=== PATIENT | female | born 1945 | race Caucasian/White ===

== ENCOUNTER 2016-04-21 10:04 | Emergency (ER) | payer MEDICARE, MEDICAID ==
[~2016-04-21] VITALS: Wt 84.0 kg
[~2016-04-21 10:04] MED LIST: AMLO5TAB4 PO; ESCI10TA48 PO; ESOM40CA PO; INSU100V19 SC; KETO15CR TOP; LORA0.5T PO; MECL25TA2 PO; PIOG15TA21 PO; SITA1TAB7 PO; SITA50TA2 PO; TERB250T46 PO; TYL500 PO
[2016-04-21] MEDS ORDERED: morphine 4 MG/ML VIAL IV STA (10:49)
[2016-04-21] MEDS ORDERED: SOD CHLORIDE 0.9% 1,000 ML IV STA (10:49)
[2016-04-21] MEDS ORDERED: ONDANSETRON 4 MG INJ IV STA (10:49)
[2016-04-21 11:22] LABS: BASOPHILS % 0.4 % (0.0-2.0); EOSINOPHILS # 0.1 10^3/ul (0.0-0.5); EOSINOPHILS % 0.8 % (0.0-7.0); HEMATOCRIT 37.9 % (37.0-47.0); HEMOGLOBIN 12.5 g/dl (12.0-16.0); LYMPHOCYTES % 14.6 % (15.0-51.0); MEAN CORPUSCULAR HEMOGLOBIN 27.5 pg (29.0-33.0); MEAN CORPUSCULAR VOLUME 83.3 fl (82.0-101.0); MEAN PLATELET VOLUME 10.1 fl (7.4-10.4); MONOCYTE # 0.3 10^3/ul (0.3-0.9); NEUTROPHIL # 5.7 10^3/ul (1.6-7.5); NEUTROPHILS % 80.2 % (39.0-77.0); PLATELET COUNT 96 10^3/UL (140-440); RED BLOOD COUNT 4.55 10^6/ul (4.20-5.40); RED CELL DISTRIBUTION WIDTH 14.6 % (11.5-14.5); UNCORRECTED WBC 7.1 10^3/ul (4.8-10.8); WHITE BLOOD COUNT 7.1 10^3/ul (4.8-10.8)
[2016-04-21 11:24] LABS: ADD UMIC YES; CONDITION 1; LH ANALYZER COMMENTS 1; URINE BILIRUBIN (Dip) NEGATIVE (NEGATIVE); URINE BLOOD (Dip) NEGATIVE (NEGATIVE); URINE COLOR YELLOW (YELLOW); URINE GLUCOSE (Dip) NEGATIVE (NEGATIVE); URINE KETONES (Dip) NEGATIVE (NEGATIVE); URINE LEUKOCYTE ESTERASE (Dip) TRACE (NEGATIVE); URINE NITRITE (Dip) NEGATIVE (NEGATIVE); URINE TOTAL PROTEIN (Dip) NEGATIVE (NEGATIVE); URINE UROBILINOGEN (Dip) 4.0 E.U./dL (0.1-1.0)
[2016-04-21 11:27] LABS: ALBUMIN 3.6 g/dl (3.3-4.9)
[2016-04-21 11:28] LABS: POTASSIUM 3.8 mmol/L (3.5-5.1)
[2016-04-21 11:30] LABS: ALBUMIN/GLOBULIN RATIO 1.12; BILIRUBIN,INDIRECT 0.8 mg/dl (0-1.1); BILIRUBIN,TOTAL 0.8 mg/dl (0.2-1.3); CREATININE 0.66 mg/dl (0.44-1.00); TOTAL PROTEIN 6.8 g/dl (6.1-8.1)
[2016-04-21 11:31] LABS: CALCIUM 9.4 mg/dl (8.4-10.2)
[2016-04-21 11:33] LABS: SQUAMOUS EPITHELIAL CELL,UR OCCASIONAL; URINE RBCS NONE SEEN /HPF (0)
[2016-04-21] MEDS ORDERED: LANT3I SC (12:12)
[2016-04-21] MEDS ORDERED: OMEP40CA6 PO (12:14)
[2016-04-21] MEDS ORDERED: RANI150T5 PO (12:14)
[2016-04-21] MEDS ORDERED: LOSA100T7 PO (12:16)
--- NOTE | 2016-04-21 13:10 | RADRPT ---
PROCEDURE: CT abdomen and pelvis without IV contrast CLINICAL INDICATION: Abdominal pain TECHNIQUE: Axial images were obtained through the abdomen and pelvis without IV contrast. Coronal and sagittal reconstructions were obtained. Automated exposure control was utilized. DLP = 1291.3 mGy-cm. CTDiol= 22.2 mGy. One or more of the following post reduction techniques were used: - Automated exposure control. - Adjustment of the mA and/or Kv according to patient's size. - Use of iterative reconstruction technique COMPARISON: December 01, 2011 FINDINGS: Dependent, subsegmental atelectasis is identified in both lungs. Heart size is within normal limits . Diffusely nodular contour of the liver is identified. Punctate calcified granuloma is identified in the right liver. Cholecystectomy clips are noted in the gallbladder fossa. The pancreas and adren als are unremarkable. The spleen measures at the upper limit of normal at 12.7 cm in length. 1.9 cm mildly high attenuation nodule projects from the superior pole of the left kidney. 2.[address] is noted in the inferior pole of the right kidney. No obstructive uropathy is identified. The bl adder is filled with a small to moderate amount of urine. The uterus has been removed. Air and stool are seen scattered within the colon. Multiple left colon and sigmoid colon diverticul a are observed. Additional diverticula are seen scattered throughout the right colon. The appendix is not distinctly identified. Surgical material adjacent to the cecum may be from prior appendecto my. No gross right lower quadrant inflammatory changes are seen. No dilated loops of small bowel a re observed. The stomach and duodenum are unremarkable. No intra-abdominal or pelvic free fluid or fluid collections are observed. Multiple surgical clips a re seen anterior to the transverse colon. Additional surgical clips are identified in the retroperi toneum adjacent to the iliac vessels, aorta and inferior vena cava. No intra-abdominal or pelvic lym phadenopathy is observed. Minimal calcified atherosclerosis is noted in the aorta. Mild to moderate degenerative changes are seen in the spine. Atrophy of the rectus muscles is obser rogelio. Focal subcutaneous calcification is seen over the right gluteal region and may be the sequelae of prior trauma or injection. The remaining subcutaneous and muscular soft tissues surrounding the abdomen and pelvis are unremarkable. IMPRESSION: Limited evaluation for intra-abdominal inflammatory processes without IV contrast. If there is clin ical concern for a intra-abdominal inflammatory process repeat exam with IV contrast is recommended. Diffusely nodular contour of the liver suggesting cirrhosis. Spleen that measures at the upper limit of normal. 1.9 cm mildly high attenuation nodule that projects from the superior pole of the left kidney. This may reflect a hemorrhagic cyst versus true soft tissue nodule. Size and appearance are unchanged wh en compared with prior exam. Further characterization with ultrasound can be considered. Colonic diverticulosis. Evidence of prior abdominal and retroperitoneal surgery. Degenerative changes in the spine and calcified atherosclerosis in the arterial vasculature. RPTAT: AA .Adebayo Armenta MD, MD Date Time Electronically viewed and signed by .Adebayo Armenta MD, MD on 04/21/2016 13:10 .P/
[2016-04-21] MEDS ORDERED: DOCU-144 PO (13:35)
[2016-04-21] MEDS ORDERED: HYDR-902 PO (13:35)
[2016-04-21] MEDS ORDERED: ONDA4TAB14 PO (13:35)
--- NOTE | 2016-04-21 14:04 | ERD ---
ER Documentation Chief Complaint Date/Time DATE: 04/21/16 TIME: 14:03 Chief Complaint GEN ABD PAIN FOR THE PAST 2 WKS. NO DYSURIA BUT HEMATURIA. NO DIARRHEA HPI Patient is a 71-year-old female with hypertension, diabetes, and previous ovarian cancer who presents with abdominal pain. She has had these symptoms for about 1 month. The pain is diffuse. She felt like maybe she had a bladder infection because she had mucus and blood in her urine. She had fever as well previously. She had vomiting. She tried Tylenol. Upon review of old medical records this is the patient's fifth visit to the ER since 2008. ROS All systems reviewed and are negative except as per history of present illness. Medications Home Meds Active Scripts Docusate Sodium* (Colace*) 100 Mg Capsule, 100 MG PO TID, #30 CAP Prov:TONYA JIMENEZ MD 04/21/16 Ondansetron (Ondansetron Odt) 4 Mg Tab.rapdis, 4 MG PO Q6H Y for NAUSEA AND/OR VOMITING, #30 TAB Prov:TONYA JIMENEZ MD 04/21/16 Hydrocodone/Acetaminophen ([place] 10-325 Tablet) 1 Each Tablet, 1 TAB PO Q6H Y for PAIN, #7 TAB Prov:TONYA JIMENEZ MD 04/21/16 Reported Medications Losartan Potassium* (Losartan Potassium*) 100 Mg Tablet, 100 MG PO DAILY, TAB 04/21/16 Ranitidine Hcl* (Ranitidine Hcl*) 150 Mg Tablet, 150 MG PO HS, #30 TAB 04/21/16 Omeprazole* (Omeprazole*) 40 Mg Capsule.dr, 40 MG PO DAILY, #30 CAP 04/21/16 Insulin Glargine* (Lantus*) 100 Unit/Ml Soln, 55 UNIT SC DAILY, #1 VIAL 04/21/16 Terbinafine* (Lamisil*) 250 Mg Tablet, 250 MG PO DAILY, TAB 12/26/14 Escitalopram Oxalate* (Escitalopram Oxalate*) 10 Mg Tablet, 10 MG PO DAILY, TAB 12/26/14 Sitagliptin* (Januvia*) 50 Mg Tablet, 50 MG PO DAILY, TAB 12/26/14 Lorazepam* (Lorazepam*) 0.5 Mg Tablet, 0.5 MG PO DAILY Y for ANXIETY, TAB 12/26/14 Acetaminophen* (Tylenol*) 500 Mg Tab, 500 MG PO Q6 Y for MILD PAIN LEVEL 1-3, TAB 12/26/14 Amlodipine Besylate* (Norvasc*) 5 Mg Tablet, 5 MG PO DAILY 06/17/12 Discontinued Reported Medications Pioglitazone Hcl* (Pioglitazone Hcl*) 15 Mg Tablet, 15 MG PO DAILY, TAB 12/26/14 Sitagliptin Phos-Metformin Hcl (Janumet) 50-1,000 Mg Tablet, 1 TAB PO BID, TAB 12/26/14 Ketoconazole* (Ketoconazole*) 60 Gm Cream.gm., 1 APPLIC TOP DAILY, EA 12/26/14 Esomeprazole Mag Trihydrate (Nexium) 40 Mg Capsule.dr, 40 MG PO DAILY 06/17/12 Insulin Glargine,Hum.rec.anlog (Lantus) 100 U/Ml Vial, 70 UNITS SC DAILY 12/01/11 Discontinued Scripts Meclizine Hcl* (Antivert*) 25 Mg Tablet, 25 MG PO Q6H Y for DIZZINESS, #20 TAB Prov:DAYANA PIERSON MD 12/26/14 Allergies Allergies: Coded Allergies: No Known Allergy (Unverified , 06/17/12) PMhx/Soc History of Surgery: Yes (anastacio) Anesthesia Reaction: No Hx Neurological Disorder: No Hx Cardiac Disorders: Yes (HTN) Hx Psychiatric Problems: No Hx Miscellaneous Medical Probl: Yes (ovarian, uterine CA, DM) Hx Alcohol Use: No Hx Substance Use: No Hx Tobacco Use: No Smoking Status: Never smoker FmHx Family History: diabetes Physical Exam Vitals Vital Signs Date Time Temp Pulse Resp B/P Pulse Ox O2 Delivery O2 Flow Rate FiO2 04/21/16 11:36 75 18 167/77 99 Room Air 04/21/16 10:06 97.7 73 20 161/68 98 Physical Exam Const: Mild distress secondary to pain Head: Atraumatic Eyes: Normal Conjunctiva ENT: Normal External Ears, Nose and Mouth. Neck: Full range of motion..~ No meningismus. Resp: Clear to auscultation bilaterally Cardio: Regular rate and rhythm, no murmurs Abd: Soft, diffuse tenderness to palpation without rebound or guarding Skin: No petechiae or rashes Back: No midline or flank tenderness Ext: No cyanosis, or edema Neur: Awake and alert Psych: Normal Mood and Affect Result Diagram: 04/21/16 1100 04/21/16 1100 Results 24 hrs Laboratory Tests Test 04/21/16 11:00 Alanine Aminotransferase (ALT/SGPT) 48IU/L Albumin 3.6g/dl Albumin/Globulin Ratio 1.12 Alkaline Phosphatase 146IU/L Anion Gap 14 Aspartate Amino Transf (AST/SGOT) 45IU/L Basophils # 0.010^3/ul Basophils % 0.4% Blood Morphology Comment Blood Urea Nitrogen 11mg/dl Calcium Level 9.4mg/dl Carbon Dioxide Level 32mmol/L Chloride Level 102mmol/L Creatinine 0.66mg/dl Direct Bilirubin 0.00mg/dl Eosinophils # 0.110^3/ul Eosinophils % 0.8% Globulin 3.20g/dl Glucose Level 254mg/dl Hematocrit 37.9% Hemoglobin 12.5g/dl Indirect Bilirubin 0.8mg/dl Lipase 397U/L Lymphocytes # 1.010^3/ul Lymphocytes % 14.6% Mean Corpuscular Hemoglobin 27.5pg Mean Corpuscular Hemoglobin Concent 33.0g/dl Mean Corpuscular Volume 83.3fl Mean Platelet Volume 10.1fl Monocytes # 0.310^3/ul Monocytes % 4.0% Neutrophils # 5.710^3/ul Neutrophils % 80.2% Nucleated Red Blood Cells # 0.010^3/ul Nucleated Red Blood Cells % 0.0/100WBC Platelet Count 9610^3/UL Potassium Level 3.8mmol/L Red Blood Count 4.5510^6/ul Red Cell Distribution Width 14.6% Sodium Level 144mmol/L Total Bilirubin 0.8mg/dl Total Protein 6.8g/dl Urine Bilirubin NEGATIVE Urine Clarity CLEAR Urine Color YELLOW Urine Glucose NEGATIVE% Urine Hemoglobin NEGATIVE Urine Ketones NEGATIVE Urine Leukocyte Esterase TRACE Urine Microscopic RBC NONE SEEN/HPF Urine Microscopic WBC 0-2/HPF Urine Nitrite NEGATIVE Urine Specific M[place] 1.025 Urine Squamous Epithelial Cells OCCASIONAL Urine Total Protein NEGATIVE Urine Urobilinogen 4.0 E.U./dL Urine pH 6.0 White Blood Count 7.110^3/ul Current Medications Medications (Trade) Dose Ordered Sig/Addison Route PRN Reason Start Time Stop Time Status Last Admin Dose Admin Sodium Chloride (NS) 1,000 ml @ 1,000 mls/hr Q1H STAT IV 04/21/16 10:49 2/13/17 11:48 DC 04/21/16 11:09 Morphine Sulfate (morphine) 4 mg ONCE STAT IV 04/21/16 10:49 04/21/16 10:50 DC 04/21/16 11:09 Ondansetron HCl (Zofran Inj) 4 mg ONCE STAT IV 04/21/16 10:49 04/21/16 10:50 DC 04/21/16 11:10 Procedures/MDM PROCEDURE: CT abdomen and pelvis without IV contrast CLINICAL INDICATION: Abdominal pain TECHNIQUE: Axial images were obtained through the abdomen and pelvis without IV contrast. Coronal and sagittal reconstructions were obtained. Automated exposure control was utilized. DLP = 1291.3 mGy-cm. CTDiol= 22.2 mGy. One or more of the following post reduction techniques were used: - Automated exposure control. - Adjustment of the mA and/or Kv according to patient's size. - Use of iterative reconstruction technique COMPARISON: December 01, 2011 FINDINGS: Dependent, subsegmental atelectasis is identified in both lungs. Heart size is within normal limits. Diffusely nodular contour of the liver is identified. Punctate calcified granuloma is identified in the right liver. Cholecystectomy clips are noted in the gallbladder fossa. The pancreas and adrenals are unremarkable. The spleen measures at the upper limit of normal at 12.7 cm in length. 1.9 cm mildly high attenuation nodule projects from the superior pole of the left kidney. 2.0 cm cyst is noted in the inferior pole of the right kidney. No obstructive uropathy is identified. The bladder is filled with a small to moderate amount of urine. The uterus has been removed. Air and stool are seen scattered within the colon. Multiple left colon and sigmoid colon diverticula are observed. Additional diverticula are seen scattered throughout the right colon. The appendix is not distinctly identified. Surgical material adjacent to the cecum may be from prior appendectomy. No gross right lower quadrant inflammatory changes are seen. No dilated loops of small bowel are observed. The stomach and duodenum are unremarkable. No intra-abdominal or pelvic free fluid or fluid collections are observed. Multiple surgical clips are seen anterior to the transverse colon. Additional surgical clips are identified in the retroperitoneum adjacent to the iliac vessels, aorta and inferior vena cava. No intra-abdominal or pelvic lymphadenopathy is observed. Minimal calcified atherosclerosis is noted in the aorta. Mild to moderate degenerative changes are seen in the spine. Atrophy of the rectus muscles is observed. Focal subcutaneous calcification is seen over the right gluteal region and may be the sequelae of prior trauma or injection. The remaining subcutaneous and muscular soft tissues surrounding the abdomen and pelvis are unremarkable. IMPRESSION: Limited evaluation for intra-abdominal inflammatory processes without IV contrast. If there is clinical concern for a intra-abdominal inflammatory process repeat exam with IV contrast is recommended. Diffusely nodular contour of the liver suggesting cirrhosis. Spleen that measures at the upper limit of normal. 1.9 cm mildly high attenuation nodule that projects from the superior pole of the left kidney. This may reflect a hemorrhagic cyst versus true soft tissue nodule. Size and appearance are unchanged when compared with prior exam. Further characterization with ultrasound can be considered. Colonic diverticulosis. Evidence of prior abdominal and retroperitoneal surgery. Degenerative changes in the spine and calcified atherosclerosis in the arterial vasculature. RPTAT: AA .Adebayo Armenta MD, MD Date Time Electronically viewed and signed by .Adebayo Armenta MD, MD on 04/21/2016 13:10 Departure Diagnosis: Primary Impression: Abdominal pain Abdominal location: generalized Qualified Code: R10.84 - Generalized abdominal pain Condition: Fair Patient Instructions: Abdominal Pain Referrals: Dr. Reyes Additional Instructions: Visite a brad hernandez para un EXAMEN.Regrese a estas instalaciones si no se mejora wayne esperbamos o wayne abiel dijimos. TONYA JIMENEZ MD Apr 21, 2016 14:04
[2016-04-21 14:05] VITALS: BP 164/78; PULSE 75; RESP 18; TEMP 98.2
== END 2016-04-21 14:07 | disposition home or self-care (01) ==
LOC: E/R 10:04
DX: R10.84 Generalized abdominal pain (principal); R11.10 Vomiting, unspecified; I10 Essential (primary) hypertension; E11.9 Type 2 diabetes mellitus without complications; Z79.4 Long term (current) use of insulin; Z79.84 Long term (current) use of oral hypoglycemic drugs; Z85.42 Personal history of malignant neoplasm of other parts of uterus
CPT/HCPCS: 36415; 74176; 80053; 81001; 83690; 85025; 96374; 96375; 99285; J2270; J2405; J7030; 81003